=== PATIENT | male | born 1955 | race Caucasian/White ===

== ENCOUNTER 2020-03-29 11:06 | Inpatient (IN) | payer OTHER ==
[~2020-03-29] VITALS: Ht 180.3 cm; Wt 117.2 kg
[2020-03-29 11:14] VITALS: Ht 180.3 cm; Wt 117.2 kg
[2020-03-29 11:58] LABS: CARBON DIOXIDE 25.6 mmol/L (21-32); CHLORIDE SERUM 93 mmol/L (98-107); CREATININE SERUM 1.2 mg/dL (0.7-1.3); GFR1 > 60 mL/min; GLUCOSE SERUM 122 mg/dL (74-106); POTASSIUM SERUM 3.3 mmol/L (3.5-5.1); SODIUM SERUM 128 mmol/L (136-145)
[2020-03-29 12:08] LABS: ALBUMIN 3.6 g/dL (3.4-5.0); ALKALINE PHOSPHATASE 44 U/L (46-116); ALT/SGPT 30 U/L (16-63); AST/SGOT 83 U/L (15-37); BILIRUBIN TOTAL 2.49 mg/dL (0.20-1.00); LACTIC DEHYDROGENASE (LDH) 291 U/L (100-190); TOTAL PROTEIN, SERUM 8.6 g/dL (6.4-8.2)
[2020-03-29] MEDS ORDERED: LIPITOR20 MG PO (12:08)
[2020-03-29] MEDS ORDERED: ASPIR 8181 MG PO (12:08)
[2020-03-29] MEDS ORDERED: CARVEDILOL12.5 M1 PO (12:08)
[2020-03-29] MEDS ORDERED: LASIX40 MG PO (12:09)
[2020-03-29] MEDS ORDERED: ALL DAY ALLERGY10 M2 PO (12:09)
[2020-03-29] MEDS ORDERED: NITROGLYCERIN0.4 MG SL (12:10)
[2020-03-29] MEDS ORDERED: XOPENEX HF0.045 MG/1 INH (12:10)
[2020-03-29] MEDS ORDERED: MIRTAZAPINE45 M2 PO (12:10)
[2020-03-29] MEDS ORDERED: ZES10 PO (12:10)
[2020-03-29] MEDS ORDERED: ALD25 PO (12:11)
[2020-03-29] MEDS ORDERED: SPIRIVA18 MC1 IH (12:11)
[2020-03-29 12:33] LABS: RED CELL DISTRIBUTION WIDTH 14.7 % (11.5-14.5)
[2020-03-29 12:39] LABS: C REACTIVE PROTEIN 29.8 mg/dL (<=0.9)
[2020-03-29 13:28] LABS: BAND NEUTROPHIL 5 % (0-10); MONOCYTE 8 % (0-7); SEGMENTED NEUTROPHILS 82 % (37-75); rbc morphology (normal/abnorm) ABNORMAL (NORMAL)
[2020-03-29 13:30] LABS: PLATELET COUNT 80 x10^3mcL (130-400)
[2020-03-29 15:19] VITALS: BP 95/53
[2020-03-29 15:22] VITALS: BP 115/61
[2020-03-29 18:10] VITALS: BP 100/66
[2020-03-29 20:00] VITALS: BP 130/59
[2020-03-30] VITALS (9 sets, daily range): BP systolic 70–116; BP diastolic 33–72
[2020-03-30 02:16] LABS: microscopic required? YES; urine erythrocyte 3+ (NEGATIVE)
[2020-03-30 06:16] LABS: CALCIUM 9.1 mg/dL (8.5-10.1); CARBON DIOXIDE 22.9 mmol/L (21-32); CHLORIDE SERUM 96 mmol/L (98-107); CREATININE SERUM 1.2 mg/dL (0.7-1.3); GFR1 > 60 mL/min; GLUCOSE SERUM 110 mg/dL (74-106); POTASSIUM SERUM 3.7 mmol/L (3.5-5.1); SODIUM SERUM 128 mmol/L (136-145)
[2020-03-30 06:39] LABS: BASOPHIL % 0.2 % (0-2)
[2020-03-30 06:48] LABS: PLATELET COUNT 94 x10^3mcL (130-400); RED CELL DISTRIBUTION WIDTH 14.7 % (11.5-14.5)
[2020-03-30 16:34] LABS: BASOPHIL % 0.1 % (0-2); RED CELL DISTRIBUTION WIDTH 14.2 % (11.5-14.5)
[2020-03-30 16:35] LABS: PLATELET COUNT 99 x10^3mcL (130-400)
[2020-03-30 16:36] LABS: CALCIUM 8.2 mg/dL (8.5-10.1); CARBON DIOXIDE 26.2 mmol/L (21-32); CREATININE SERUM 1.3 mg/dL (0.7-1.3); POTASSIUM SERUM 3.6 mmol/L (3.5-5.1)
[2020-03-30 16:38] LABS: MAGNESIUM 1.9 mg/dL (1.8-2.4); PHOSPHOROUS 2.8 mg/dL (2.5-4.9)
[2020-03-31] VITALS (18 sets, daily range): BP systolic 86–142; BP diastolic 42–90
[2020-03-31 05:40] LABS: BASOPHIL % 0.3 % (0-2); PLATELET COUNT 155 x10^3mcL (130-400)
[2020-03-31 05:43] LABS: RED CELL DISTRIBUTION WIDTH 15.3 % (11.5-14.5)
[2020-03-31 05:56] LABS: CALCIUM 8.5 mg/dL (8.5-10.1); CHLORIDE SERUM 96 mmol/L (98-107); CREATININE SERUM 1.1 mg/dL (0.7-1.3); GFR1 > 60 mL/min; GLUCOSE SERUM 100 mg/dL (74-106); POTASSIUM SERUM 4.7 mmol/L (3.5-5.1); SODIUM SERUM 127 mmol/L (136-145)
[2020-04-01] VITALS (18 sets, daily range): BP systolic 81–135; BP diastolic 42–74
[2020-04-01 06:28] LABS: BASOPHIL % 0.4 % (0-2); PLATELET COUNT 132 x10^3mcL (130-400)
[2020-04-01 06:43] LABS: CALCIUM 7.7 mg/dL (8.5-10.1); CARBON DIOXIDE 25.7 mmol/L (21-32); CREATININE SERUM 1.3 mg/dL (0.7-1.3); POTASSIUM SERUM 3.1 mmol/L (3.5-5.1)
[2020-04-01 07:09] LABS: C REACTIVE PROTEIN 15.7 mg/dL (<=0.9)
[2020-04-01 10:05] LABS: ERYTHROCYTE SED RATE 58 mm/hr (0-20)
[2020-04-02] VITALS (18 sets, daily range): BP systolic 101–159; BP diastolic 54–78
[2020-04-02 06:49] LABS: CALCIUM 7.6 mg/dL (8.5-10.1); CARBON DIOXIDE 24.8 mmol/L (21-32); CHLORIDE SERUM 103 mmol/L (98-107); GFR1 > 60 mL/min; GLUCOSE SERUM 143 mg/dL (74-106); POTASSIUM SERUM 3.2 mmol/L (3.5-5.1); SODIUM SERUM 137 mmol/L (136-145)
[2020-04-02 07:24] LABS: PLATELET COUNT 124 x10^3mcL (130-400); RED CELL DISTRIBUTION WIDTH 14.8 % (11.5-14.5)
[2020-04-02 11:25] LABS: BAND NEUTROPHIL 5 % (0-10); MONOCYTE 14 % (0-7); SEGMENTED NEUTROPHILS 69 % (37-75)
[2020-04-02 11:26] LABS: PLATELET MORPHOLOGY LARGE PLATELET SEEN; rbc morphology (normal/abnorm) NORMAL (NORMAL)
[2020-04-03] VITALS (20 sets, daily range): BP systolic 83–155; BP diastolic 45–63
[2020-04-03 06:21] LABS: BASOPHIL % 0.2 % (0-2); PLATELET COUNT 146 x10^3mcL (130-400); RED CELL DISTRIBUTION WIDTH 14.5 % (11.5-14.5)
[2020-04-03 06:46] LABS: CALCIUM 7.2 mg/dL (8.5-10.1); CARBON DIOXIDE 25.1 mmol/L (21-32); CHLORIDE SERUM 106 mmol/L (98-107); GFR1 > 60 mL/min; GLUCOSE SERUM 156 mg/dL (74-106); POTASSIUM SERUM 3.7 mmol/L (3.5-5.1); SODIUM SERUM 139 mmol/L (136-145)
[2020-04-04 01:38] VITALS: BP 99/52
[2020-04-04 03:05] VITALS: BP 92/56
[2020-04-04 03:51] VITALS: BP 92/56
[2020-04-04 05:03] LABS: PLATELET COUNT 320 x10^3mcL (130-400); RED CELL DISTRIBUTION WIDTH 14.5 % (11.5-14.5)
[2020-04-04 05:08] LABS: CARBON DIOXIDE 20.3 mmol/L (21-32); CREATININE SERUM 2.4 mg/dL (0.7-1.3); POTASSIUM SERUM 4.6 mmol/L (3.5-5.1)
[2020-04-04 05:09] LABS: ATYPICAL LYMPH 5 %; SEGMENTED NEUTROPHILS 90 % (37-75)
[2020-04-04 05:10] LABS: PLATELET MORPHOLOGY PLATELETS NORMAL; rbc morphology (normal/abnorm) ABNORMAL (NORMAL)
[2020-04-04 05:12] VITALS: BP 92/56
[2020-04-04 07:15] VITALS: BP 33/18
[2020-04-04 09:00] VITALS: BP 74/36
== END 2020-04-04 19:29 | disposition expired | DRG 870 ==
LOC: ED 11:06 → DU 13:23 → IC 03-30 14:43
PROVIDERS: Internal Medicine; Specialist; ADMIT Internal Medicine
PROC: 02HV33Z Insertion of Infusion Device into Superior Vena Cava, Percutaneous Approach (ICD-10-PCS; principal; 2020-03-30)
PROC: 5A1955Z Respiratory Ventilation, Greater than 96 Consecutive Hours (ICD-10-PCS; 2020-03-30)
PROC: 0BH17EZ Insertion of Endotracheal Airway into Trachea, Via Natural or Artificial Opening (ICD-10-PCS; 2020-03-30)
PROC: 5A12012 Performance of Cardiac Output, Single, Manual (ICD-10-PCS; 2020-04-04)
DX: A41.9 Sepsis, unspecified organism (principal); J96.01 Acute respiratory failure with hypoxia; J18.9 Pneumonia, unspecified organism; R65.21 Severe sepsis with septic shock; I50.33 Acute on chronic diastolic (congestive) heart failure; U07.1 COVID-19; J44.0 Chronic obstructive pulmonary disease with (acute) lower respiratory infection; M62.82 Rhabdomyolysis; E87.1 Hypo-osmolality and hyponatremia; N17.9 Acute kidney failure, unspecified; I11.0 Hypertensive heart disease with heart failure; I25.10 Atherosclerotic heart disease of native coronary artery without angina pectoris; J44.9 Chronic obstructive pulmonary disease, unspecified; D72.829 Elevated white blood cell count, unspecified; E86.0 Dehydration; E87.6 Hypokalemia; R91.8 Other nonspecific abnormal finding of lung field; E78.5 Hyperlipidemia, unspecified; I48.91 Unspecified atrial fibrillation; I46.9 Cardiac arrest, cause unspecified; D69.6 Thrombocytopenia, unspecified; Z86.19 Personal history of other infectious and parasitic diseases; Z95.0 Presence of cardiac pacemaker; Z79.899 Other long term (current) drug therapy; Z91.19 Patient's noncompliance with other medical treatment and regimen
CPT/HCPCS: 36556; 36600; 83880; 85378; 87804; A4628; G0378; J0456; J0696; J1650; J1940; J2250; J2370; J2543; J2704; J3010; J3370; J3475; J3490; J3535; J7030; J7040; J7050; J7060; Q0092; Q9967